=== PATIENT | male | born 1945 | race Caucasian/White ===

== ENCOUNTER 2018-03-20 08:30 | Inpatient (IN) | payer OTHER ==
[~2018-03-20] VITALS: Ht 190.5 cm; Wt 106.6 kg
[2018-03-20] MEDS ORDERED: ALDACTONE25 MG PO (09:21)
[2018-03-20] MEDS ORDERED: METOPROLOL SUCC50 MG PO (09:22)
[2018-03-20] MEDS ORDERED: LASIX20 MG PO (09:22)
[2018-03-20] MEDS ORDERED: LISINOPRIL10 MG PO (09:22)
[2018-03-20] MEDS ORDERED: ATORVASTATIN CA20 MG PO (09:23)
[2018-03-20] MEDS ORDERED: CLOPIDOGREL BIS75 MG PO (09:23)
[2018-04-02] MEDS ORDERED: TAMSULOSIN HCL0.4 MG PO (15:58)
[2018-04-02] MEDS ORDERED: OXYC1TAB9 PO (15:58)
[2018-04-02] MEDS ORDERED: Intestinex CAP PO (15:58)
== END 2018-04-02 17:05 | disposition home or self-care (01) | DRG 330 ==
LOC: EDBD 03-28 08:30 → SURH 03-28 08:30 → ICU 03-28 09:26 → O/R 03-28 09:26 → SURH 03-28 18:00 → ICU 03-28 21:43 → SURH 03-30 12:25 → MEDI 03-30 12:25 → SURH 03-30 12:25
PROVIDERS: Surgery
PROC: 0DTP4ZZ Resection of Rectum, Percutaneous Endoscopic Approach (ICD-10-PCS; 2018-03-28)
PROC: 07TC4ZZ Resection of Pelvis Lymphatic, Percutaneous Endoscopic Approach (ICD-10-PCS; 2018-03-28)
PROC: 0DJD8ZZ Inspection of Lower Intestinal Tract, Via Natural or Artificial Opening Endoscopic (ICD-10-PCS; 2018-03-28)
PROC: 0DTN4ZZ Resection of Sigmoid Colon, Percutaneous Endoscopic Approach (ICD-10-PCS; principal; 2018-03-28 18:00)
PROC: 4A12X4Z Monitoring of Cardiac Electrical Activity, External Approach (ICD-10-PCS; 2018-03-30)
DX: C19 Malignant neoplasm of rectosigmoid junction (principal); I50.20 Unspecified systolic (congestive) heart failure; R59.0 Localized enlarged lymph nodes; I48.0 Paroxysmal atrial fibrillation; I11.0 Hypertensive heart disease with heart failure; Z95.810 Presence of automatic (implantable) cardiac defibrillator; R33.8 Other retention of urine; R07.89 Other chest pain

== ENCOUNTER 2018-11-26 06:00 | Day surgery (SDC) | payer OTHER ==
[~2018-11-26 06:00] MED LIST: ALDACTONE25 MG PO; ATORVASTATIN CA20 MG PO; CLOPIDOGREL BIS75 MG PO; Intestinex CAP PO; LASIX20 MG PO; LISINOPRIL10 MG PO; METOPROLOL SUCC50 MG PO; OXYC1TAB9 PO; TAMSULOSIN HCL0.4 MG PO
== END 2018-11-26 13:30 | disposition home or self-care (01) ==
LOC: AMB-ENDOS 06:00
DX: K64.8 Other hemorrhoids (principal)

== ENCOUNTER 2020-03-02 08:31 | Day surgery (SDC) | payer OTHER | END 2020-03-02 12:30 | disposition home or self-care (01) | LOC: CIR.AMB 08:31 → ADM 13:00 | PROVIDERS: ATTEND Surgery | DX: K62.89 Other specified diseases of anus and rectum (principal); Z20.828 Contact with and (suspected) exposure to other viral communicable diseases ==

== ENCOUNTER 2021-06-28 05:30 | Day surgery (SDC) | payer OTHER | END 2021-06-28 09:50 | disposition home or self-care (01) | LOC: AMB-ENDOS 05:30 | PROVIDERS: ATTEND Surgery | DX: K62.89 Other specified diseases of anus and rectum (principal); Z20.822 Contact with and (suspected) exposure to COVID-19 ==